=== PATIENT | male | born 1965 | race Caucasian/White ===

== ENCOUNTER 2017-05-19 21:40 | Inpatient (IN) | payer BC ==
[~2017-05-19] VITALS: Ht 170.2 cm; Wt 122.5 kg
[~2017-05-19 21:40] MED LIST: CENTRUM SILVER1 EAC5 PO; CLARITIN-D 21 TABLET PO
[2017-05-20 08:11] LABS: POINT-OF-CARE METER ID UU14174212
[2017-05-20 08:39] VITALS: BP 149/65
[2017-05-20 14:45] VITALS: BP 146/89
[2017-05-20 20:05] VITALS: BP 145/84
[2017-05-20 23:37] VITALS: BP 143/79
[2017-05-21 04:13] VITALS: BP 128/58
[2017-05-21 07:22] LABS: HEMATOCRIT 43.3 % (38.0-50.0); MCH 31.4 PG (29.0-34.0); MCHC 35.3 G/DL (30.0-36.0); MCV 88.7 FL (86-99); MEAN PLAT.VOLUME 9.2 uM^3 (9.0-12.4); PLATELET COUNT 232 K/uL (156-360); RBC DIS.WIDTH-CV 11.9 % (11.8-14.6); RBC DIS.WIDTH-SD 38.6 % (39-53); RED BLOOD COUNT 4.88 M/uL (4.00-5.50); WHITE BLOOD COUNT 13.4 K/uL (4.1-10.2)
[2017-05-21 08:00] VITALS: BP 129/76
[2017-05-21] MEDS ORDERED: PERCOCET 5/31 TABLET PO (11:01)
[2017-05-21] MEDS ORDERED: PROTONIX40 MG PO (11:02)
== END 2017-05-21 11:55 | disposition home or self-care (01) | DRG 621 ==
LOC: ENRESERV 21:40 → 2SOUTH 05-20 07:34 → ENRESERV 05-20 12:15 → 2EASTP 05-20 14:40
PROVIDERS: Surgery
PROC: 0DB64Z3 Excision of Stomach, Percutaneous Endoscopic Approach, Vertical (ICD-10-PCS; principal; 2017-05-20)
DX: E66.01 Morbid (severe) obesity due to excess calories (principal); Z68.41 Body mass index [BMI] 40.0-44.9, adult; G47.33 Obstructive sleep apnea (adult) (pediatric); Z96.659 Presence of unspecified artificial knee joint; Z96.649 Presence of unspecified artificial hip joint; K44.9 Diaphragmatic hernia without obstruction or gangrene
CPT/HCPCS: 82948; 85027; 94799; C9113; J0131; J0330; J1100; J1170; J1580; J1644; J1650; J2250; J2270; J2405; J2550; J2710; J2765; J3010; J3480; J7050; J7120; S0020